=== PATIENT | female | born 1985 | race Caucasian/White ===

== ENCOUNTER → 2019-12-11 13:22 | Outpatient (CLI) | payer OTHER ==
[~2019-12-11 13:22] MED LIST: ACYCLOVIR800 MG PO; CLINDAMYCIN HC300 MG PO; MEDROL4 MG PO; ORASEP SPRAY30 ML MM; ULTRACET PO
== END | disposition home or self-care (01) ==
LOC: LAB 13:22
PROVIDERS: ATTEND Pediatrics Neonatal-Perinatal Medicine
DX: Z20.828 Contact with and (suspected) exposure to other viral communicable diseases (principal)